=== PATIENT | male | born 1980 | race African-American/Black ===

== ENCOUNTER 2017-08-20 12:11 | Emergency (ER) | payer BC ==
[~2017-08-20] VITALS: Ht 180.3 cm; Wt 107.0 kg
[2017-08-20 12:56] VITALS: BP 121/76
== END 2017-08-20 18:00 | disposition left against medical advice (07) ==
LOC: ER 13:25
DX: M25.559 Pain in unspecified hip (principal); Z53.21 Procedure and treatment not carried out due to patient leaving prior to being seen by health care provider